=== PATIENT | male | born 1990 | race Caucasian/White ===

== ENCOUNTER 2023-11-17 11:34 | Inpatient (IN) | payer BC ==
[2023-11-17 12:14] VITALS: BMI 26.1
[2023-11-17] MEDS ORDERED: hydrOXYzine PAMOATE 25 MG CAPSULE (FP) PO PRN (12:54)
[2023-11-17] MEDS ORDERED: NICOTINE POLACRILEX 2 MG GUM BUC PRN (12:54)
[2023-11-17] MEDS ORDERED: BENZOCAINE/MENTHOL (CHLORASEPTIC ) LOZENGE MM PRN (12:54)
[2023-11-17] MEDS ORDERED: MAGNESIUM HYDROX 2400MG/30ML ORAL SUSPENSION 30 ML CUP PO PRN (12:54)
[2023-11-17] MEDS ORDERED: DICYCLOMINE HCL 10 MG CAPSULE PO PRN (12:54)
[2023-11-17] MEDS ORDERED: POLYETHYLENE GLYCOL (HEALTHYLAX) 3350 17 GM PACKET PO PRN (12:54)
[2023-11-17] MEDS ORDERED: guaiFENesin 600 MG TABLET.ER (FP) PO PRN (12:54)
[2023-11-17] MEDS ORDERED: BENZONATATE 200 MG CAPSULE PO PRN (12:54)
[2023-11-17] MEDS ORDERED: ONDANSETRON *ODT* 4 MG TABLET SL PRN (12:54)
[2023-11-17] MEDS ORDERED: P-EPHED 60MG/TRIPROLIDI 2.5MG TABLET PO PRN (12:54)
[2023-11-17] MEDS ORDERED: LOPERAMIDE HCL 2 MG CAPSULE PO PRN (12:54)
[2023-11-17] MEDS ORDERED: ACETAMINOPHEN 325 MG TABLET (FP) PO PRN (12:54)
[2023-11-17] MEDS ORDERED: MAG HYDROX/AL HYDROX/SIMETH 30 ML UNIT-DOSE CUP PO PRN (12:54)
[2023-11-17] MEDS ORDERED: IBUPROFEN 400 MG TABLET (FP) PO PRN (12:54)
[2023-11-17] MEDS ORDERED: BISMUTH SUBSALICYLATE 262 MG/15 ML BTL PO PRN (12:54)
[2023-11-17] MEDS ORDERED: IBUPROFEN 600 MG TABLET (FP) PO PRN (12:54)
[2023-11-17] MEDS ORDERED: METHOCARBAMOL 500 MG TABLET PO PRN (12:54)
[2023-11-17] MEDS: THIAMINE HCL 100 MG TABLET (FP) PO SCH (22:30)
[2023-11-17] MEDS: MELATONIN 5 MG TABLETS PO SCH (22:30)
[2023-11-18 09:43] LABS: CHLORIDE 107 mmol/L (98-107); POTASSIUM 4.5 mmol/L (3.5-5.1); SODIUM 139 mmol/L (136-145)
[2023-11-18 09:45] LABS: HEMATOCRIT 42.2 % (35.4-49); MCHC 33.2 g/dl (32.0-35.9); MEAN CELL VOLUME 93.3 fl (80-96); MEAN PLT VOLUME 8.3 fl (7.5-11.1); PLATELET COUNT 377 10^3/uL (134-434); RBC 4.53 M/mm3 (4.00-5.60); RDW 13.6 % (11.9-15.9); WHITE BLOOD COUNT 6.3 K/mm3 (4.0-10.0)
[2023-11-18 10:05] LABS: ALBUMIN 3.2 g/dl (3.4-5.0); CALCIUM 8.9 mg/dL (8.5-10.1)
[2023-11-18 10:06] LABS: ANION GAP 6 mmol/L (4-13); BLOOD UREA NITROGEN 8.9 mg/dL (7-18); CO2 25 mmol/L (21-32); GLUCOSE,RANDOM 83 mg/dL (74-106)
[2023-11-18 10:08] LABS: CREATININE 0.7 mg/dL (0.55-1.3); SGPT/ALT 44 U/L (13-61)
[2023-11-18 10:09] LABS: SGOT/AST 30 U/L (15-37)
[2023-11-18 10:10] LABS: TOT PROT 6.6 g/dl (6.4-8.2)
[2023-11-18 10:11] LABS: BILIRUBIN,TOTAL 0.2 mg/dL (0.2-1)
[2023-11-18 10:12] LABS: ALK PHOS 80 U/L (45-117)
[2023-11-18] MEDS: PRENATAL VITAMINS W/ FOLIC ACID TABLET (FP) PO SCH (10:41)
[2023-11-18] MEDS: THIAMINE HCL 100 MG TABLET (FP) PO SCH (22:27)
[2023-11-18] MEDS: MELATONIN 5 MG TABLETS PO SCH (22:28)
[2023-11-19 10:07] VITALS: BP 126/73; PULSE 61; RESP 16; TEMP 98.3
[2023-11-19] MEDS: PRENATAL VITAMINS W/ FOLIC ACID TABLET (FP) PO SCH (10:56)
== END 2023-11-19 11:23 | disposition home or self-care (01) | DRG 774 ==
LOC: YASAS 11:34 → Y6N 14:09
PROVIDERS: ADMIT Allergy & Immunology; ATTEND Surgery
PROC: HZ2ZZZZ Detoxification Services for Substance Abuse Treatment (ICD-10-PCS; principal; 2023-11-17)
DX: F10.20 Alcohol dependence, uncomplicated (principal); F14.20 Cocaine dependence, uncomplicated; F17.210 Nicotine dependence, cigarettes, uncomplicated
CPT/HCPCS: 36415; 80053; 80307; 85027; 86780; 87635; 87811

== ENCOUNTER 2024-01-08 12:00 | Emergency (ER) | payer BC ==
[2024-01-08 12:11] VITALS: PULSE 79; BMI 27.0
[2024-01-08] MEDS ORDERED: DALBAVANCIN HCL 500 MG VIAL (RESTRICTED TO ID ONLY) IVPB ONE (13:59)
[2024-01-08] MEDS: DALBAVANCIN HCL 1,500 MG in DEXTROSE 5%-WATER - 500 ML IVPB ONE (14:13)
[2024-01-08 14:24] LABS: BASO % 0.7 % (0-2.0); EOS % 3.2 % (0-4.5); HEMATOCRIT 37.5 % (35.4-49); LYMPH % 24.5 % (8-40); MCH 31.8 pg (25.7-33.7); MCHC 34.5 g/dl (32.0-35.9); MEAN PLT VOLUME 7.7 fl (7.5-11.1); NEUT % 59.6 % (42.8-82.8); PLATELET COUNT 401 10^3/uL (134-434); RBC 4.07 M/mm3 (4.00-5.60); RDW 13.2 % (11.9-15.9); WHITE BLOOD COUNT 5.4 K/mm3 (4.0-10.0)
[2024-01-08 14:41] LABS: CHLORIDE 106 mmol/L (98-107); POTASSIUM 4.2 mmol/L (3.5-5.1); SODIUM 139 mmol/L (136-145)
[2024-01-08 14:45] LABS: ALBUMIN 3.4 g/dl (3.4-5.0); ANION GAP 6 mmol/L (4-13); BLOOD UREA NITROGEN 7.4 mg/dL (7-18); CO2 28 mmol/L (21-32); GLUCOSE,RANDOM 107 mg/dL (74-106)
[2024-01-08 14:48] LABS: CREATININE 0.7 mg/dL (0.55-1.3); SGOT/AST 140 U/L (15-37); SGPT/ALT 144 U/L (13-61)
[2024-01-08 14:49] LABS: BILIRUBIN,TOTAL 0.3 mg/dL (0.2-1); TOT PROT 6.7 g/dl (6.4-8.2)
[2024-01-08 14:51] LABS: ALK PHOS 98 U/L (45-117)
[2024-01-08 15:08] LABS: ERYTHROCYTE SEDIMENTATION RATE 11 mm/hr (0-10)
[2024-01-08 17:18] VITALS: BP 144/83; RESP 16; TEMP 98.2
== END 2024-01-08 17:25 | disposition home or self-care (01) ==
LOC: JER 12:00
DX: R22.31 Localized swelling, mass and lump, right upper limb (principal); L03.113 Cellulitis of right upper limb; F10.20 Alcohol dependence, uncomplicated
CPT/HCPCS: 36415; 73130-TC-RT-FY; 80053; 85025; 85651; 86140; 99284-25; J0875

== ENCOUNTER 2024-01-08 18:20 | Inpatient (IN) | payer BC ==
[2024-01-08 10:30] VITALS: BMI 27.0
[~2024-01-08 18:20] MED LIST: ACETAMINOPHEN 325 MG TABLET (FP) PO PRN; BENZOCAINE/MENTHOL (CHLORASEPTIC ) LOZENGE MM PRN; BENZONATATE 200 MG CAPSULE PO PRN; DICYCLOMINE HCL 10 MG CAPSULE PO PRN; IBUPROFEN 400 MG TABLET (FP) PO PRN; IBUPROFEN 600 MG TABLET (FP) PO PRN; LOPERAMIDE HCL 2 MG CAPSULE PO PRN; MAG HYDROX/AL HYDROX/SIMETH 30 ML UNIT-DOSE CUP PO PRN; MAGNESIUM HYDROX 2400MG/30ML ORAL SUSPENSION 30 ML CUP PO PRN; NALOXONE HCL (KLOXXADO) 8 MG SPRAY NS PRN; NALOXONE HCL 0.4 MG/ML VIAL IM PRN; NICOTINE POLACRILEX 2 MG GUM BUC PRN; ONDANSETRON *ODT* 4 MG TABLET SL PRN; POLYETHYLENE GLYCOL (HEALTHYLAX) 3350 17 GM PACKET PO PRN; guaiFENesin 600 MG TABLET.ER (FP) PO PRN
[2024-01-08] MEDS: hydrOXYzine PAMOATE 25 MG CAPSULE (FP) PO PRN (22:32)
[2024-01-08] MEDS: METHOCARBAMOL 500 MG TABLET PO PRN (22:32)
[2024-01-08] MEDS: MELATONIN 5 MG TABLETS PO SCH (22:32)
[2024-01-08] MEDS: THIAMINE HCL 100 MG TABLET (FP) PO SCH (22:33)
[2024-01-09] MEDS ORDERED: chlordiazePOXIDE HCL 25 MG CAPSULE PO PRN (09:38)
[2024-01-09] MEDS: NICOTINE 14 MG/24 HOURS TOPICAL PATCH TD SCH (10:14)
[2024-01-09] MEDS: PRENATAL VITAMINS W/ FOLIC ACID TABLET (FP) PO SCH (10:14)
[2024-01-09] MEDS: chlordiazePOXIDE HCL 25 MG CAPSULE PO SCH (10:14)
[2024-01-11] MEDS: chlordiazePOXIDE HCL 25 MG CAPSULE PO SCH (05:32)
[2024-01-11] MEDS ORDERED: LORazepam 1 MG TABLET PO PRN ×2 (09:14→09:25)
[2024-01-11] MEDS: LORazepam 2 MG TABLET PO SCH (10:07)
[2024-01-11 11:44] LABS: HEMATOCRIT 39.1 % (35.4-49); HEMOGLOBIN 13.4 GM/dL (11.7-16.9); MCHC 34.3 g/dl (32.0-35.9); MEAN CELL VOLUME 93.2 fl (80-96); MEAN PLT VOLUME 8.7 fl (7.5-11.1); PLATELET COUNT 304 10^3/uL (134-434); RDW 13.8 % (11.9-15.9); WHITE BLOOD COUNT 6.1 K/mm3 (4.0-10.0)
[2024-01-11 11:51] LABS: POTASSIUM 4.3 mmol/L (3.5-5.1)
[2024-01-11 11:58] LABS: ALBUMIN 3.2 g/dl (3.4-5.0); CALCIUM 8.6 mg/dL (8.5-10.1)
[2024-01-11 11:59] LABS: BLOOD UREA NITROGEN 11.7 mg/dL (7-18)
[2024-01-11 12:00] LABS: CREATININE 0.7 mg/dL (0.55-1.3)
[2024-01-11 12:42] LABS: TOT PROT 6.4 g/dl (6.4-8.2)
[2024-01-11 13:36] LABS: BILIRUBIN,TOTAL 0.2 mg/dL (0.2-1)
[2024-01-12] MEDS ORDERED: chlordiazePOXIDE HCL 10 MG CAPSULE PO PRN
[2024-01-12] MEDS ORDERED: LORazepam 0.5 MG TABLET PO PRN
[2024-01-12] MEDS ORDERED: chlordiazePOXIDE HCL 10 MG CAPSULE PO SCH (05:00)
[2024-01-12] MEDS: LORazepam 1 MG TABLET PO SCH (05:14)
[2024-01-12] MEDS: LACTULOSE 20 GM/30 ML UDC (FOR ORAL USE ONLY) PO SCH (10:21)
[2024-01-13] MEDS ORDERED: chlordiazePOXIDE HCL 10 MG CAPSULE PO SCH (05:00)
[2024-01-13] MEDS: LORazepam 0.5 MG TABLET PO SCH (05:23)
[2024-01-13] MEDS: BISMUTH SUBSALICYLATE 262 MG/15 ML BTL PO PRN (19:39)
[2024-01-14] MEDS ORDERED: chlordiazePOXIDE HCL 10 MG CAPSULE PO ONE (05:00)
[2024-01-14 09:40] VITALS: BP 117/74; PULSE 85; RESP 16; TEMP 98
[2024-01-14 13:07] LABS: ALBUMIN 3.2 g/dl (3.4-5.0)
[2024-01-14 13:10] LABS: BILIRUBIN,DIRECT < 0.1 mg/dL (0.0-0.2); SGOT/AST 164 U/L (15-37); SGPT/ALT 538 U/L (13-61)
[2024-01-14 13:12] LABS: BILIRUBIN,TOTAL 0.2 mg/dL (0.2-1); TOT PROT 6.1 g/dl (6.4-8.2)
[2024-01-14 13:13] LABS: ALK PHOS 72 U/L (45-117)
== END 2024-01-14 10:23 | disposition home or self-care (01) | DRG 774 ==
LOC: YASAS 18:20 → Y3N 21:37
PROVIDERS: ADMIT Allergy & Immunology; ATTEND Surgery
PROC: HZ2ZZZZ Detoxification Services for Substance Abuse Treatment (ICD-10-PCS; principal; 2024-01-08)
DX: F10.230 Alcohol dependence with withdrawal, uncomplicated (principal); F14.20 Cocaine dependence, uncomplicated; F17.210 Nicotine dependence, cigarettes, uncomplicated; E72.20 Disorder of urea cycle metabolism, unspecified; R74.01 Elevation of levels of liver transaminase levels; Z59.00 Homelessness unspecified
CPT/HCPCS: 36415; 80053; 80076; 80305; 82140; 84450; 84460; 85027; 86780; 87635; 93005; 93010

== ENCOUNTER 2024-02-21 12:14 | Inpatient (IN) | payer BC ==
[2024-02-21 13:11] VITALS: BMI 28.1
[2024-02-21] MEDS ORDERED: IBUPROFEN 600 MG TABLET (FP) PO PRN (14:00)
[2024-02-21] MEDS ORDERED: hydrOXYzine PAMOATE 25 MG CAPSULE (FP) PO PRN (14:00)
[2024-02-21] MEDS ORDERED: DICYCLOMINE HCL 10 MG CAPSULE PO PRN (14:00)
[2024-02-21] MEDS ORDERED: BISMUTH SUBSALICYLATE 524 MG/30 ML PO PRN (14:00)
[2024-02-21] MEDS ORDERED: guaiFENesin 600 MG TABLET.ER (FP) PO PRN (14:00)
[2024-02-21] MEDS ORDERED: BENZONATATE 200 MG CAPSULE PO PRN (14:00)
[2024-02-21] MEDS ORDERED: NALOXONE HCL 0.4 MG/ML VIAL IM PRN (14:00)
[2024-02-21] MEDS ORDERED: ACETAMINOPHEN 325 MG TABLET (FP) PO PRN (14:00)
[2024-02-21] MEDS ORDERED: POLYETHYLENE GLYCOL (HEALTHYLAX) 3350 17 GM PACKET PO PRN (14:00)
[2024-02-21] MEDS ORDERED: IBUPROFEN 400 MG TABLET (FP) PO PRN (14:00)
[2024-02-21] MEDS ORDERED: BENZOCAINE/MENTHOL (CHLORASEPTIC ) LOZENGE MM PRN (14:00)
[2024-02-21] MEDS ORDERED: NALOXONE HCL (KLOXXADO) 8 MG SPRAY NS PRN (14:00)
[2024-02-21] MEDS ORDERED: ONDANSETRON *ODT* 4 MG TABLET SL PRN (14:00)
[2024-02-21] MEDS ORDERED: MAGNESIUM HYDROX 2400MG/30ML ORAL SUSPENSION 30 ML CUP PO PRN (14:00)
[2024-02-21] MEDS ORDERED: LOPERAMIDE HCL 2 MG CAPSULE PO PRN (14:00)
[2024-02-21] MEDS ORDERED: MAG HYDROX/AL HYDROX/SIMETH 30 ML UNIT-DOSE CUP PO PRN (14:00)
[2024-02-21] MEDS ORDERED: NICOTINE 14 MG/24 HOURS TOPICAL PATCH TD ONE (14:50)
[2024-02-21] MEDS ORDERED: PRENATAL VITAMINS W/ FOLIC ACID TABLET (FP) PO ONE (14:51)
[2024-02-21] MEDS: PRENATAL VITAMINS W/ FOLIC ACID TABLET (FP) PO SCH (14:57)
[2024-02-21] MEDS: NICOTINE 14 MG/24 HOURS TOPICAL PATCH TD SCH (14:57)
[2024-02-21] MEDS: MELATONIN 5 MG TABLETS PO SCH (22:00)
[2024-02-21] MEDS: THIAMINE HCL 100 MG TABLET (FP) PO SCH (22:00)
[2024-02-21] MEDS: METHOCARBAMOL 500 MG TABLET PO PRN (22:00)
[2024-02-22] MEDS ORDERED: chlordiazePOXIDE HCL 25 MG CAPSULE PO PRN (08:47)
[2024-02-22] MEDS: chlordiazePOXIDE HCL 25 MG CAPSULE PO SCH (10:21)
[2024-02-22] MEDS: LIDOCAINE 4% PATCH TP SCH (10:21)
[2024-02-22 11:26] LABS: CHLORIDE 106 mmol/L (98-107); SODIUM 138 mmol/L (136-145)
[2024-02-22 11:28] LABS: HEMATOCRIT 38.5 % (35.4-49); HEMOGLOBIN 13.2 GM/dL (11.7-16.9); MCH 31.8 pg (25.7-33.7); MCHC 34.3 g/dl (32.0-35.9); MEAN CELL VOLUME 92.8 fl (80-96); MEAN PLT VOLUME 8.5 fl (7.5-11.1); PLATELET COUNT 251 10^3/uL (134-434); RBC 4.15 M/mm3 (4.00-5.60); RDW 13.7 % (11.9-15.9); WHITE BLOOD COUNT 7.4 K/mm3 (4.0-10.0)
[2024-02-22 11:32] LABS: CALCIUM 8.8 mg/dL (8.5-10.1); GLUCOSE,RANDOM 92 mg/dL (74-106)
[2024-02-22 11:33] LABS: ALBUMIN 3.6 g/dl (3.4-5.0); ANION GAP 7 mmol/L (4-13); BLOOD UREA NITROGEN 12.6 mg/dL (7-18); CO2 26 mmol/L (21-32)
[2024-02-22 11:35] LABS: SGPT/ALT 44 U/L (13-61)
[2024-02-22 11:36] LABS: CREATININE 0.7 mg/dL (0.55-1.3); SGOT/AST 34 U/L (15-37)
[2024-02-22 11:37] LABS: BILIRUBIN,TOTAL 0.6 mg/dL (0.2-1); TOT PROT 6.7 g/dl (6.4-8.2)
[2024-02-22 11:38] LABS: ALK PHOS 81 U/L (45-117)
[2024-02-22] MEDS: LIDOCAINE PATCH REMOVAL MC SCH (22:26)
[2024-02-24] MEDS: chlordiazePOXIDE HCL 25 MG CAPSULE PO SCH (05:33)
[2024-02-25] MEDS ORDERED: chlordiazePOXIDE HCL 10 MG CAPSULE PO PRN
[2024-02-25] MEDS: chlordiazePOXIDE HCL 10 MG CAPSULE PO SCH (05:31)
[2024-02-25] MEDS: LACTULOSE 20 GM/30 ML UDC (FOR ORAL USE ONLY) PO SCH (13:35)
[2024-02-25 20:57] VITALS: BP 148/89; PULSE 90; RESP 20; TEMP 98
[2024-02-26] MEDS ORDERED: chlordiazePOXIDE HCL 10 MG CAPSULE PO SCH (05:00)
[2024-02-27] MEDS ORDERED: chlordiazePOXIDE HCL 10 MG CAPSULE PO ONE (05:00)
== END 2024-02-25 22:05 | disposition left against medical advice (07) | DRG 770 ==
LOC: YASAS 12:14 → Y6N 14:13
PROVIDERS: ADMIT Allergy & Immunology; ATTEND Surgery
PROC: HZ2ZZZZ Detoxification Services for Substance Abuse Treatment (ICD-10-PCS; principal; 2024-02-21)
DX: F10.230 Alcohol dependence with withdrawal, uncomplicated (principal); F14.20 Cocaine dependence, uncomplicated; F17.210 Nicotine dependence, cigarettes, uncomplicated; M79.642 Pain in left hand; M79.89 Other specified soft tissue disorders
CPT/HCPCS: 36415; 80053; 80307; 82140; 85027; 86780

== ENCOUNTER 2024-03-22 14:18 | Inpatient (IN) | payer BC ==
[2024-03-22 14:43] VITALS: BMI 27.2
[2024-03-22] MEDS ORDERED: chlordiazePOXIDE HCL 25 MG CAPSULE PO PRN (17:10)
[2024-03-22] MEDS ORDERED: IBUPROFEN 400 MG TABLET (FP) PO PRN (17:10)
[2024-03-22] MEDS ORDERED: POLYETHYLENE GLYCOL (HEALTHYLAX) 3350 17 GM PACKET PO PRN (17:10)
[2024-03-22] MEDS ORDERED: DICYCLOMINE HCL 10 MG CAPSULE PO PRN (17:10)
[2024-03-22] MEDS ORDERED: LOPERAMIDE HCL 2 MG CAPSULE PO PRN (17:10)
[2024-03-22] MEDS ORDERED: IBUPROFEN 600 MG TABLET (FP) PO PRN (17:10)
[2024-03-22] MEDS ORDERED: MAG HYDROX/AL HYDROX/SIMETH 30 ML UNIT-DOSE CUP PO PRN (17:10)
[2024-03-22] MEDS ORDERED: BENZONATATE 200 MG CAPSULE PO PRN (17:10)
[2024-03-22] MEDS ORDERED: BENZOCAINE/MENTHOL (CHLORASEPTIC ) LOZENGE MM PRN (17:10)
[2024-03-22] MEDS ORDERED: NALOXONE HCL 0.4 MG/ML VIAL IM PRN (17:10)
[2024-03-22] MEDS ORDERED: ONDANSETRON *ODT* 4 MG TABLET SL PRN (17:10)
[2024-03-22] MEDS ORDERED: MAGNESIUM HYDROX 2400MG/30ML ORAL SUSPENSION 30 ML CUP PO PRN (17:10)
[2024-03-22] MEDS ORDERED: guaiFENesin 600 MG TABLET.ER (FP) PO PRN (17:10)
[2024-03-22] MEDS ORDERED: NALOXONE HCL (KLOXXADO) 8 MG SPRAY NS PRN (17:10)
[2024-03-22] MEDS ORDERED: PRENATAL VITAMINS W/ FOLIC ACID TABLET (FP) PO ONE (18:59)
[2024-03-22] MEDS ORDERED: chlordiazePOXIDE HCL 25 MG CAPSULE ONE (19:11)
[2024-03-22] MEDS: PRENATAL VITAMINS W/ FOLIC ACID TABLET (FP) PO SCH (19:29)
[2024-03-22] MEDS: BISMUTH SUBSALICYLATE 524 MG/30 ML PO PRN (21:24)
[2024-03-22] MEDS: chlordiazePOXIDE HCL 25 MG CAPSULE PO SCH (22:22)
[2024-03-22] MEDS: MELATONIN 5 MG TABLETS PO SCH (22:25)
[2024-03-22] MEDS: THIAMINE 100 MG TABLET PO SCH (22:25)
[2024-03-23] MEDS: NICOTINE 14 MG/24 HOURS TOPICAL PATCH TD SCH (10:13)
[2024-03-23 14:48] LABS: HEMOGLOBIN 13.7 GM/dL (11.7-16.9); MCH 31.9 pg (25.7-33.7); MCHC 34.2 g/dl (32.0-35.9); MEAN CELL VOLUME 93.3 fl (80-96); MEAN PLT VOLUME 8.5 fl (7.5-11.1); PLATELET COUNT 312 10^3/uL (134-434); RBC 4.29 M/mm3 (4.00-5.60); RDW 14.8 % (11.9-15.9); WHITE BLOOD COUNT 5.8 K/mm3 (4.0-10.0)
[2024-03-23 14:54] LABS: CHLORIDE 108 mmol/L (98-107); POTASSIUM 4.1 mmol/L (3.5-5.1); SODIUM 140 mmol/L (136-145)
[2024-03-23 15:12] LABS: ALBUMIN 3.2 g/dl (3.4-5.0); ANION GAP 5 mmol/L (4-13); CALCIUM 8.5 mg/dL (8.5-10.1); CO2 26 mmol/L (21-32); GLUCOSE,RANDOM 109 mg/dL (74-106)
[2024-03-23 15:13] LABS: BILIRUBIN,TOTAL 0.6 mg/dL (0.2-1); BLOOD UREA NITROGEN 9.2 mg/dL (7-18); TOT PROT 6.3 g/dl (6.4-8.2)
[2024-03-23 15:14] LABS: ALK PHOS 83 U/L (45-117); CREATININE 0.8 mg/dL (0.55-1.3); SGPT/ALT 56 U/L (13-61)
[2024-03-23 15:15] LABS: SGOT/AST 40 U/L (15-37)
[2024-03-24] MEDS: chlordiazePOXIDE HCL 25 MG CAPSULE PO SCH (05:51)
[2024-03-24] MEDS: LACTULOSE 20 GM/30 ML UDC (FOR ORAL USE ONLY) PO SCH (14:45)
[2024-03-25] MEDS ORDERED: chlordiazePOXIDE HCL 10 MG CAPSULE PO PRN
[2024-03-25] MEDS: chlordiazePOXIDE HCL 10 MG CAPSULE PO SCH (05:51)
[2024-03-26] MEDS: chlordiazePOXIDE HCL 10 MG CAPSULE PO SCH (05:18)
[2024-03-26] MEDS: ACETAMINOPHEN 325 MG TABLET (FP) PO PRN (19:37)
[2024-03-26 20:39] VITALS: RESP 18
[2024-03-26] MEDS: METHOCARBAMOL 500 MG TABLET PO PRN (22:22)
[2024-03-26] MEDS: hydrOXYzine PAMOATE 25 MG CAPSULE (FP) PO PRN (22:22)
[2024-03-27] MEDS: chlordiazePOXIDE HCL 10 MG CAPSULE PO ONE (05:15)
[2024-03-27 09:02] VITALS: BP 136/72; PULSE 78; TEMP 98
== END 2024-03-27 13:15 | disposition home or self-care (01) | DRG 774 ==
LOC: YASAS 14:18 → Y3N 17:24
PROVIDERS: ADMIT Allergy & Immunology; ATTEND Surgery
PROC: HZ2ZZZZ Detoxification Services for Substance Abuse Treatment (ICD-10-PCS; principal; 2024-03-22)
DX: F10.230 Alcohol dependence with withdrawal, uncomplicated (principal); F14.20 Cocaine dependence, uncomplicated; F12.10 Cannabis abuse, uncomplicated; F17.210 Nicotine dependence, cigarettes, uncomplicated; E72.20 Disorder of urea cycle metabolism, unspecified
CPT/HCPCS: 36415; 80053; 80305; 80307; 82140; 85027; 86780; 93005; 93010